=== PATIENT | female | born 1965 | race African-American/Black ===

== ENCOUNTER 2022-10-26 11:50 | Emergency (ER) | payer MEDICARE ==
[2022-10-26] MEDS ORDERED: Aspirin Chewable 81 MG TAB ONE (12:11)
[2022-10-26 12:41] LABS: ALT (SGPT) 16 U/L (8-55); AST (SGOT) 15 U/L (5-34); Albumin 3.6 g/dL (3.5-5.0); Alkaline Phosphatase 157 U/L (40-110); Anion Gap 19 mmol/L (10-20); BUN (Urea Nitrogen) 8 mg/dL (9.8-20.1); Bilirubin, Total 0.4 mg/dL (0.2-1.2); Calc. Creatinine Clearance 0 mL/min (70-130); Calcium 8.6 mg/dL (7.8-10.44); Carbon Dioxide 18 mmol/L (22-29); Chloride 101 mmol/L (98-107); Estimated GFR 73; Globulin 3.3 g/dL (2.4-3.5); Glucose 334 mg/dL (70-105); Magnesium 1.5 mg/dL (1.6-2.6); Potassium 4.1 mmol/L (3.5-5.1); Protein, Total 6.9 g/dL (6.0-8.3); Sodium 134 mmol/L (136-145)
[2022-10-26 12:45] LABS: Troponin I Less than 0.010 ng/mL (< 0.028)
[2022-10-26 12:49] LABS: Band 2 % (5-11); Eosinophils 2 % (0-10); Hematocrit 36.4 % (36.0-47.0); Hemoglobin 11.8 g/dL (12.0-16.0); Hypochromia SLIGHT = 6-15 cells (100X) (0-5/hpf); Lymphocytes 54 % (21-51); MDiff Complete? YES; Mean Corpuscular HGB CONC 32.4 g/dL (32.0-36.0); Mean Corpuscular Hemoglobin 27.7 pg (27.0-31.0); Mean Corpuscular Volume 85.5 fl (78.0-98.0); Mean Platelet Volume 10.8 fL (7.4-10.4); Neutrophil 42 % (42-75); Platelet Adequacy Comment Appears Adequate; Platelet Count 196 10x3/uL (130-400); Red Blood Cell (RBC) Count 4.26 mill/uL (4.20-5.40); White Blood Cell (WBC) Count 5.1 10x3/uL (4.8-10.8)
[2022-10-26] MEDS ORDERED: Nitroglycerin 0.4 MG TAB 1 EACH ONE (12:51)
[2022-10-26] MEDS ORDERED: Magnesium Oxide 400 MG TAB ONE (13:59)
[2022-10-26] MEDS ORDERED: Acetaminophen 500 MG TAB ONE (13:59)
[2022-10-26 16:15] LABS: Troponin I Less than 0.010 ng/mL (< 0.028)
== END 2022-10-26 16:44 | disposition short-term general hospital (02) ==
LOC: MADERS 11:50
DX: R07.9 Chest pain, unspecified (principal); E83.42 Hypomagnesemia; E11.65 Type 2 diabetes mellitus with hyperglycemia; Z79.4 Long term (current) use of insulin; I25.10 Atherosclerotic heart disease of native coronary artery without angina pectoris; K21.9 Gastro-esophageal reflux disease without esophagitis; E78.00 Pure hypercholesterolemia, unspecified; I10 Essential (primary) hypertension; E66.9 Obesity, unspecified; Z79.84 Long term (current) use of oral hypoglycemic drugs; Z79.899 Other long term (current) drug therapy; Z79.82 Long term (current) use of aspirin
CPT/HCPCS: 71045; 80053; 83735; 83880; 84484; 85025; 93005